=== PATIENT | male | born 1990 | race Caucasian/White ===

== ENCOUNTER 2018-08-15 14:27 | Day surgery (SDC) | payer OTHER ==
[2018-08-15] MEDS ORDERED: LIDOCAINE 1%/EPI (1:100,000) (MDV) 20 ML (16:39)
[2018-08-15] MEDS ORDERED: COCAINE 4% 4 ML TOP (16:40)
[2018-08-15] MEDS ORDERED: BACITRACIN/POLYMYXIN 28.35 GM OINT TOP (16:40)
[2018-08-15] MEDS ORDERED: DESFLURANE 15 MIN (16:40)
[2018-08-15] MEDS ORDERED: LIDOCAINE 2% (SDV) 5 ML INJ (16:40)
[2018-08-15] MEDS ORDERED: EPINEPHrine 1 MG INJ (16:40)
[2018-08-15] MEDS ORDERED: GLYCOPYRROLATE 0.4 MG INJ (16:41)
[2018-08-15] MEDS ORDERED: ROCURONIUM 50 MG INJ (16:41)
[2018-08-15] MEDS ORDERED: NEOSTIGMINE 3 MG/3 ML SYRINGE (16:41)
[2018-08-15] MEDS ORDERED: CEFAZOLIN 1 GM INJ (16:41)
[2018-08-15] MEDS ORDERED: PROPOFOL 20 ML (16:41)
[2018-08-15] MEDS ORDERED: MIDAZOLAM 1 MG/ML 2 ML INJ (16:42)
[2018-08-15] MEDS ORDERED: DEXAMETHASONE 4 MG/ML 5 ML INJ (16:42)
[2018-08-15] MEDS ORDERED: FENTAnyl 50 MCG/ML VIAL (16:42)
[2018-08-15] MEDS ORDERED: ONDANSETRON 4 MG INJ (16:42)
[2018-08-15] MEDS ORDERED: TRIMETHOBENZAMIDE 100 MG/ML VIAL IM (17:00)
[2018-08-15] MEDS ORDERED: MIDAZOLAM 1 MG/ML 2 ML INJ IV (17:00)
[2018-08-15] MEDS ORDERED: EPHEDrine SULFATE 50 MG/5 ML SYG IV (17:00)
[2018-08-15] MEDS ORDERED: FENTAnyl 50 MCG/ML VIAL IV ×2 (17:00)
[2018-08-15] MEDS ORDERED: DIPHENHYDRAMINE 50 MG INJ IV (17:00)
[2018-08-15] MEDS ORDERED: OXYCODONE/ACETAMINOPHEN (5/325) TAB PO ×2 (17:00)
[2018-08-15] MEDS ORDERED: HYDROmorphONE 1 MG/5 ML IV SYRINGE IV ×3 (17:00)
[2018-08-15] MEDS ORDERED: ALBUTEROL 0.083% (NEB) 2.5 MG/3 ML AMP HHN (17:00)
[2018-08-15] MEDS ORDERED: hydrALAzine 20 MG INJ IV (17:00)
[2018-08-15] MEDS ORDERED: IPRATROPIUM (NEB) 0.5 MG/2.5 ML AMP HHN (17:00)
[2018-08-15] MEDS ORDERED: LABETALOL HCL 20MG INJ IV (17:00)
[2018-08-15] MEDS: COCAINE 4% 4 ML TOP (17:15)
[2018-08-15] MEDS: LIDOCAINE 1%/EPI 30 ML INJ INJ (17:16)
[2018-08-15] MEDS: FENTAnyl 50 MCG/ML VIAL IV (17:52)
[2018-08-15] MEDS: MEPERIDINE 25 MG INJ IV (17:52)
[2018-08-15] MEDS: ONDANSETRON 4 MG INJ IV (17:52)
[2018-08-15] MEDS ORDERED: morphine 2 MG INJ IV (18:00)
== END 2018-08-15 19:01 | disposition home or self-care (01) ==
LOC: SDS 14:27
DX: J35.2 Hypertrophy of adenoids (principal); J34.2 Deviated nasal septum
CPT/HCPCS: 30140